=== PATIENT | female | born 1970 | race Caucasian/White ===

== ENCOUNTER 2019-07-27 21:28 | Emergency (ER) | payer SELFPAY ==
[~2019-07-27] VITALS: Ht 162.6 cm; Wt 77.2 kg
[2019-07-27 22:00] VITALS: BP 121/54
--- NOTE | 2019-07-27 22:22 | PHYS DOC ---
Past Medical History Past Medical History: No Pertinent History Past Surgical History: Other Additional Past Surgical Histo: TUMMY TUCK, BREAST LIFT, LIPOSUCTION Smoking Status: Never Smoker Alcohol Use: None General Adult EDM: Chief Complaint: LOWER EXTREMITY SWELLING HPI: HPI: Patient is a 48 year old female who presents for evaluation of right lower leg pain on the anterior side. Patient recently had multiple cosmetic surgeries i ncluding a tummy tuck, breast lift and liposuction done in [facility]. These procedures were done on July 17. She is concerned that she has a small bruise on the anterior aspect of her lower leg. She has no calf redness, pain or tenderness. Symptom onset was 30 minutes prior to arrival. She is complaining of a mild headache for 5 days but had a work-up at another facility that included a CT scan and was negative. Patient takes hydrocodone chronically for pain Review of Systems: Review of Systems: Constitutional: Denies fever or chills. [] Eyes: Denies change in visual acuity. [] HENT: Denies nasal congestion or sore throat. [] Respiratory: Denies cough or shortness of breath. [] Cardiovascular: Denies chest pain or edema. [] GI: Denies abdominal pain, nausea, vomiting, bloody stools or diarrhea. [] : Denies dysuria. [] Musculoskeletal: Denies back pain or joint pain, mild anterior right lower leg pain. [] Integument: Denies rash. [] Neurologic: Denies headache, focal weakness or sensory changes. [] Endocrine: Denies polyuria or polydipsia. [] Lymphatic: Denies swollen glands. [] Psychiatric: Denies depression or anxiety. [] Heart Score: Risk Factors: Risk Factors: DM, Current or recent (<one month) smoker, HTN, HLP, family history of CAD, obesity. Risk Scores: Score 0 - 3: 2.5% MACE over next 6 weeks - Discharge Home Score 4 - 6: 20.3% MACE over next 6 weeks - Admit for Clinical Observation Score 7 - 10: 72.7% MACE over next 6 weeks - Early Invasive Strategies Allergies: Allergies: Allergies Coded Allergies Type Severity Reaction Last Updated Verified No Known Drug Allergies 07/27/19 No Physical Exam: PE: Constitutional: Well developed, well nourished, no acute distress, non-toxic appearance. [] HENT: Normocephalic, atraumatic, bilateral external ears normal, oropharynx moist, no oral exudates, nose normal. [] Eyes: PERRL, EOMI, conjunctiva normal, no discharge. [] Neck: Normal range of motion, no tenderness [] Cardiovascular:Heart rate regular rhythm, no murmur [] Lungs & Thorax: Bilateral breath sounds clear to auscultation [] Abdomen: Bowel sounds normal, soft, no tenderness. [] Skin: Warm, dry, no erythema, no rash, small bruise less than 2 cm in diameter anterior right tibia. [] Back: No tenderness, no CVA tenderness. [] Extremities: No tenderness, no cyanosis, no clubbing, ROM intact, no edema, negative Homans sign,. [] Neurologic: Alert and oriented X 3, normal motor function, normal sensory funct ion, no focal deficits noted. [] Psychologic: Affect normal, judgement normal, mood normal. [] Current Patient Data: Vital Signs: Vital Signs Date Time Temp Pulse Resp B/P (MAP) Pulse Ox O2 Delivery O2 Flow Rate FiO2 07/27/19 22:00 98.7 92 20 121/54 (76) 98 Room Air 98.7 EKG: EKG: [] Radiology/Procedures: Radiology/Procedures: [] Course & Med Decision Making: Course & Med Decision Making Pertinent Labs and Imaging studies reviewed. (See chart for details) [] Dragon Disclaimer: Dragon Disclaimer: This electronic medical record was generated, in whole or in part, using a voice recognition dictation system. 2215 patient examined and there is a small 2 cm bruise on her anterior lower tibial area. There is no calf redness, pain or swelling. She has no tingling or numbness. Clinically I do not suspect a DVT. We discussed options and patient will be sent home. No ultrasound needed tonight. Her surgery was in [place] and she states she will return there for recheck in the next several days. Should she develop pain, redness or calf swelling she will immediately return to the hospital for sonogram Departure Departure Impression: Primary Impression: Right leg pain Additional Impression: History of abdominoplasty Disposition: HOME, SELF-CARE Condition: STABLE Referrals: REANNA TONEY MD Patient Instructions: Leg Cramps Additional Instructions: The location of your pain is not consistent with a blood clot. Should you develop obvious calf pain, redness or swelling or back of the knee pain return to the hospital for testing for blood clot Justicifation of Admission Dx: Justifications for Admission: Justification of Admission Dx: N/A EDUARD CHAMORRO DO Jul 27, 2019 22:22
== END 2019-07-27 22:30 | disposition home or self-care (01) ==
LOC: ER 21:28
DX: S80.11XA Contusion of right lower leg, initial encounter (principal); R51 Headache; Z98.890 Other specified postprocedural states; X58.XXXA Exposure to other specified factors, initial encounter; Y93.89 Activity, other specified; Y92.89 Other specified places as the place of occurrence of the external cause; Y99.8 Other external cause status
CPT/HCPCS: 99281